=== PATIENT | male | born 1980 | race African-American/Black ===

== ENCOUNTER 2018-06-24 19:17 | Emergency (ER) | payer OTHER ==
[2018-06-24] MEDS ORDERED: Fluorescein Opthalmic Strip ONE (20:18)
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
== END 2018-06-24 23:13 | disposition home or self-care (01) ==
LOC: EEVIPCON 19:17 → ERS 19:17
DX: S02.32XA Fracture of orbital floor, left side, initial encounter for closed fracture (principal); S02.19XA Other fracture of base of skull, initial encounter for closed fracture; I10 Essential (primary) hypertension; Z79.899 Other long term (current) drug therapy; W22.8XXA Striking against or struck by other objects, initial encounter
CPT/HCPCS: 70486